=== PATIENT | male | born 1980 | race American Indian/Alaskan Native ===

== ENCOUNTER 2022-02-24 14:15 | Emergency (ER) | payer SELFPAY ==
[2022-02-24] MEDS ORDERED: KETOROLAC 60 MG/2 ML INJ IM ONE (15:17)
--- NOTE | 2022-02-24 15:22 | Emergency Department Report ---
Upper Extremity - HPI Chief Complaint: Shoulder Injury Stated Complaint: RIGHT SHOULDER PAIN Time Seen by Provider: 02/24/22 15:16 Upper Extremity: Right Shoulder (That started after lifting 60 pound dumbbell about a week ago. Patient have tried heat and ice with minimal improvement.) Occurred When: >5 Days Mechanism: Other (weight lifting) Severity: moderate Symptoms: Yes Pain with Movement, Yes Limited Range of Movement, No Deformity, No Numbness, No Weakness, No Swelling, No Bruising/Ecchymosis, No Laceration or Abrasion ED Review of Systems ROS: Stated complaint: RIGHT SHOULDER PAIN Other details as noted in HPI Comment: All other systems reviewed and negative Musculoskeletal: arthralgia, myalgia, other (Right shoulder pain) ED Past Medical Hx - Past Medical History Previous Medical History?: Yes Hx Hypertension: Yes (Patient was supposed to be on 4 different antihypertensive) - Surgical History Past Surgical History?: Yes Additional Surgical History: Right ankle surgery - Medications Home Medications: Home Medications Medication Instructions Recorded Confirmed Last Taken Type Cyclobenzaprine [Flexeril] 10 mg PO TID PRN 5 Days #15 tab NS 02/24/22 Unknown Rx Ketorolac [Toradol] 10 mg PO Q6H PRN 3 Days #12 tab NS 02/24/22 Unknown Rx Upper Extremity Exam - Exam General: Vital signs noted. No distress. Alert and acting appropriately. Head and Torso: No HEENT Abnormality, No Neck Tenderness, No Chest/Lungs Abnormality, No Abdominal Tenderness, No Back Tenderness Shoulder Exam: Yes Shoulder Tenderness (Right anterior shoulder tenderness), No Clavicle Tenderness, No Normal Range of Motion in Shoulder, No Shoulder Deformity, No AC Joint Tenderness Arm Exam: No Arm/Humerus Tenderness, No Arm Deformity Elbow: Yes Normal Range of Motion in Elbow, No Elbow Tenderness, No Elbow Deformity Forearm: No Forearm Tenderness, No Forearm Deformity, No Pain with Pronation, No Pain with Supination Wrist: Yes Normal ROM in Wrist, No Wrist Tenderness, No Wrist Deformity, No Snuffbox Tenderness, No Pain with Axial Thumb Compression Hand: Yes Normal ROM in Digit(s), No Hand Tenderness, No Hand Deformity, No Digit Tenderness, No Digit(s) Deformity, No Tendon Dysfunction CMS Exam: Yes Normal Distal Pulses, Yes Normal Capillary Refill, Yes Normal Distal Sensation, No Broken Skin ED Course Vital Signs 02/24/22 02/24/22 14:17 15:08 Temperature 97.8 F Pulse Rate 72 78 Respiratory 20 Rate Blood Pressure 208/135 202/113 [Right] O2 Sat by Pulse 100 96 Oximetry - Reevaluation(s) Reevaluation #1: 02/24/22 15:22 here with right shoulder pain after heavy weight lifting --symptoms is likely as a result of muscle or joint strain but pathological fracture could not be ruled out without imaging so will order xray right shoulder --In the mean time will give Toradol 60 mg IM x 1 for pain relieve. Reevaluation #2: 02/24/22 15:27 also noted with elevated blood pressure likely contributed to due to pain -- will treat with clonidine Critical care attestation.: If time is entered above; I have spent that time in minutes in the direct care of this critically ill patient, excluding procedure time. ED Disposition Clinical Impression: Right anterior shoulder pain Right shoulder strain Qualifiers: Encounter type: initial encounter Qualified Code(s): S46.911A - Strain of unspe cified muscle, fascia and tendon at shoulder and upper arm level, right arm, initial encounter Hypertension Qualifiers: Hypertension type: unspecified Qualified Code(s): I10 - Essential (primary) hypertension Disposition: 01 HOME / SELF CARE / HOMELESS Is pt being admited?: No Does the pt Need Aspirin: No Condition: Stable Instructions: How to Use Cold Therapy, [id number], Shoulder Pain, Eas y-to-Read, Hypertension (ED), Muscle Strain, [id number] Additional Instructions: Ice application for 15-20 minutes every 2-4 hours for the next 72 hours Take your pain medication and muscle relaxant as prescribed to help your symptoms Call and schedule a follow up with your doctor in the next 3-5 days for progress Continue all your medication as prescribed by your doctor Call or return to ED if your symptoms worsen Prescriptions: Cyclobenzaprine [Flexeril] 10 mg PO TID PRN 5 Days #15 tab NS PRN Reason: Muscle Spasm Ketorolac [Toradol] 10 mg PO Q6H PRN 3 Days #12 tab NS PRN Reason: Pain Referrals: DAMI SANCHEZ MD [Referring] - 3-5 Days Time of Disposition: 16:38
[2022-02-24] MEDS ORDERED: cloNIDine 0.2 MG TAB PO ONE (15:28)
--- NOTE | 2022-02-24 16:07 | XRay Report ---
XR shoulder 2+V RT INDICATION / CLINICAL INFORMATION: pain. COMPARISON: None available. FINDINGS: No acute fracture. Normal alignment. Joint spaces are preserved. No destructive osseous lesion or s uspicious periosteal reaction. Impression: 1.No acute fracture. Signer Name: Georges Krause MD Signed: 02/24/2022 4:03 PM Workstation Name: [email or web address][id number]
[2022-02-24] MEDS ORDERED: fentaNYL 100 MCG/2 ML INJ IV ONE (17:12)
[2022-02-24 19:44] VITALS: BP 168/89
== END 2022-02-24 19:35 | disposition home or self-care (01) ==
LOC: ED 14:15
DX: S46.911A Strain of unspecified muscle, fascia and tendon at shoulder and upper arm level, right arm, initial encounter (principal); I10 Essential (primary) hypertension; X50.0XXA Overexertion from strenuous movement or load, initial encounter; X50.9XXA Other and unspecified overexertion or strenuous movements or postures, initial encounter; Y93.89 Activity, other specified; Y92.89 Other specified places as the place of occurrence of the external cause; Y99.8 Other external cause status
CPT/HCPCS: 73030; 96372; 96374; 96375; 99284; J1885; J3010; J3490; 99283